=== PATIENT | male | born 1955 | race Two or more races ===

== ENCOUNTER 2016-05-25 00:49 | Day surgery (SDC) | payer OTHER ==
[~2016-05-25] VITALS: Ht 180.3 cm; Wt 90.0 kg
[2016-05-25] VITALS (18 sets, daily range): BP systolic 131–170; BP diastolic 51–84; PULSE 53–73; RESP 14–23; O2SAT 100
[~2016-05-25 00:49] MED LIST: AMLO5TAB2 PO; ASPI-973 PO; ATEN50TA PO
[2016-05-25] MEDS ORDERED: fentaNYL PF 50 mCg/mL 5 mL Inj IVPUSH PRN (06:00)
[2016-05-25] MEDS ORDERED: Flumazenil 0.1 mg/mL 5 mL Inj IV ONE (08:57)
[2016-05-25] MEDS: fentaNYL-PF 50 mCg/mL 2 mL Inj IVPUSH PRN ×2 (09:05→09:10)
[2016-05-25] MEDS ORDERED: Heparin 1,000 Units/500 mL NS Premix IV ONE (09:22)
[2016-05-25] MEDS ORDERED: Nitroglycerin 50,000 mcg/250 mL D5W Premix IV ONE (09:22)
[2016-05-25] MEDS ORDERED: Heparin 1,000 Unit/mL 10 mL Inj ONE (09:23)
[2016-05-25] MEDS ORDERED: Heparin 5,000 Units/500 mL NS Premix IV ONE (09:23)
[2016-05-25] MEDS ORDERED: 0.9% Sodium Chloride 50 ML ONE (09:28)
--- NOTE | 2016-05-25 09:31 | NUR ---
pt arousable and awaiting hearth cath. reports "i didn't feel a thing, no pain".
[2016-05-25] MEDS ORDERED: fentaNYL-PF 50 mCg/mL 2 mL Inj ONE (09:46)
[2016-05-25] MEDS ORDERED: 0.9% Sodium Chloride 250 ML IV PRN (11:03)
[2016-05-25] MEDS ORDERED: 0.9% Sodium Chloride 1,000 ML IV PRN (11:03)
[2016-05-25] MEDS ORDERED: Ondansetron 2 mg/mL 2 mL Inj IVPUSH PRN (11:05)
[2016-05-25] MEDS ORDERED: Atropine 1 mg/10 mL (Code) Syringe IVPUSH PRN (11:05)
[2016-05-25] MEDS ORDERED: HYDROcodone-APAP 5-325 mg Tablet PO PRN (11:05)
--- NOTE | 2016-05-25 12:38 | DRSVH ---
[facility] [address] [place] [address] Echocardiogram Report Name: JANICE LUND Study Date: 05/25/2016 Height: 71 in Hospital Exam Location: [facility] Weight: 199 lb Gender: Male BSA: 2.1 m2 : 1955 Age: 60 yrs BP: 154/71 mmHg Reason For Study: Mitral Valve- Regurgitation Performed By: Ulysses Gutierrez Referring Physician: REAL SANCHEZ Interpretation Summary PATRICIO to assess for mitral valve prolapse. 1. Normal LV size and function. 2. Moderate left atrial enlargement. Intact interatrial septum. Left atrial appendage is free of any thrombus. 3. Severe posterior mitral valve prolapse. Leaflet is flail and not coaptating. Moderate to severe mitral regurgitation. Coanda effect with regurgitant jet along the floor of anterior mitral leafelt and inter-atrial septum. 4. Mild tricuspid regurgitation. Other valve structures are unremarkable. 5. Mild atherosclerosis of the arotic arch. 6. No prior study is available for comparison. Procedure: Informed consent for Transesophageal Echocardiogram, and use of a contrast agent as needed, was obtained prior to the procedure. The patient was brought to the [facility] in a fasting state. An intravenous line was placed. A topical anesthetic agent was used for oropharangeal anesthesia. A bite block was inserted. IV concious sedation was administered using versed and fentanyl. The transesophageal probe was passed without difficulty. A 2D transesophageal echocardiogram with spectral and color flow Doppler was performed. The patient was in normal sinus rhythm during the exam. There were no complications. Left Ventricle: The left ventricle is normal in size, wall thickness, and systolic function without any focal wall motion abnormalities. Right Ventricle: The right ventricle grossly appears normal in size with probable normal systolic function. Atria: The left atrium is moderately dilated. Injection of contrast documented no interatrial shunt. Mitral Valve: Flail or severe prolapse of the mitral posterior leaflet. There is moderate to severe mitral regurgitation. The mitral regurgitant jet is anteriorly directed, which is consistent with posterior leaflet pathology. Aortic Valve: The aortic valve is normal in structure and function. No aortic regurgitation is present. Tricuspid Valve: The tricuspid valve is not well visualized, but is grossly normal. There is mild tricuspid regurgitation. Pulmonic Valve: The pulmonic valve leaflets are thin and pliable; valve motion is normal. Great Vessels: There is mild atherosclerotic plaque in the aortic arch. Pericardium/ Pleura: There is no pericardial effusion. Electronically signed by: Dr. Real Sanchez on Reading Physician:05/25/2016 12:38 PM
[2016-05-25] MEDS ORDERED: LIP40 PO (13:35)
[2016-05-25] MEDS ORDERED: NITR0.4T6 SL (13:35)
--- NOTE | 2016-05-25 15:40 | NUR ---
pt is up oob, isabel activity well. denies pain. groin remains soft, non-tender.
--- NOTE | 2016-05-25 16:06 | NUR ---
pt discharged with paper prescriptions in hand, and son at bedside. all questions answered, pt and family agrees to understanding and follow d/c instructions. see hard copy d/c instructions. activity restrictions discussed. pt left with cardiac catheterization and sedation paperwork. prescriptions were called in to [facility] by me personally with detailed script instructions including dr. mccauley's cell phone number in caase of questions. pt was instructed to continue atenolol until metoprolol succinate script is filled.
[2016-05-25] MEDS ORDERED: METO25TA99 PO (16:14)
--- NOTE | 2016-05-25 16:57 | CS94 ---
[place] [address] DIAGNOSTIC CARDIAC CATHETERIZATION PATIENT: JANICE LUND : 1955 MR#: [id number] ADMIT: 05/25/2016 JOB ID: [id number] SERVICE DATE: 05/25/2016 INDICATION: History of angina with abnormal stress test. Moderate to severe mitral regurgitation. CONSENT: The patient was explained the risks, benefits, and alternatives of the procedure. Informed signed consent was obtained and placed in the chart. PROCEDURE: The patient was brought to the cath laboratory and placed on the cath table. Both groins were prepped and draped in usual sterile manner. The IV fluids were administered prior to the procedure. Using a standard Seldinger technique, a 6-[place] arterial sheath and a 7-[place] venous sheath were placed in the femoral artery as well as femoral vein without any difficulty. A [place]-Mendel catheter was advanced into the venous sheath and the balloon tip was inflated after visualizing the tip. The catheter was further advanced into the right atrium, right ventricle, and into the right pulmonary artery area. Subsequently pulmonary artery occlusive pressures were obtained. Oxygen saturation was obtained as well. Pulmonary artery pressures were obtained after deflating the balloon. Cardiac output was obtained by thermodilution method. Oxygen saturation was obtained in the pulmonary artery. In a sequential manner, right ventricular and right atrial pressures as well as oxygen saturations were obtained. The [place]-Mendel catheter was withdrawn. The FR4 catheter was advanced over the guidewire and placed in the left main coronary artery, and multiple views of left coronary artery were obtained in multiple projections. FR4 catheter was subsequently used to engage the right coronary artery. Multiple views of the right coronary artery were obtained in multiple projections. A pigtail catheter was advanced over the guidewire and placed in the left ventricle. Left ventricular hemodynamics were obtained. Subsequently, in the right anterior oblique view, left ventricular cineangiography was performed. Fluoro time was 7 minutes. Total contrast used was 90 cc. Complications: None. FINDINGS: Hemodynamics. The pulmonary capillary wedge pressure was 13/16 with a mean of 11 mmHg. PA pressure was 36/11 with a mean of 21 mmHg. The transpulmonary gradient was 10 mmHg. The RV pressure was 39/3 with an RVEDP of 8 mmHg and RA pressure was 10/6 with a mean of 4 mmHg. Oxygen saturation: Pulmonary wedge oxygen saturation was 97%. PA pressure was 76%, RV 76%, RA 69% and FA was 99%. The cardiac output by thermodilution method was 6.8 with an index of 3.24 L/minute. The cardiac output by [place] method was 5.02, with a cardiac index of 2.39 L/minute per meter squared. Left ventricular hemodynamics: The left ventricular end-diastolic pressure was 18-22 mmHg. There was no left ventricular to aortic gradient. CORONARY ANGIOGRAPHY: The left main coronary artery has mild diffuse disease with tapering in the distal end. It bifurcates into left anterior descending artery and left circumflex coronary artery. The proximal LAD has a diffuse tubular stenosis of 60% to 70% severity. It gives off a 1st moderate size diagonal branch one and two, and three arising from the mid LAD. The mid LAD and distal LAD does not demonstrate any significant disease. Septal perforators are noted arising from the LAD. The left circumflex coronary artery has 70% to 80% tapering stenosis. It gives us an obtuse marginal branch. Following the obtuse marginal branch, it has and high-grade eccentric stenosis of 80% to 90%. The distal circumflex bifurcates and does not demonstrate any significant disease. Left to right collaterals are visualized. The right coronary artery has an eccentric mid RCA 80% to 90% stenosis. It is followed by an acute marginal branch which is subtotally occluded. The posterolateral branch and PDA branch do not demonstrate any significant disease. The left ventricular cineangiography demonstrates overall normal LV systolic function, 2 to 3+ mitral regurgitation. IMPRESSION: 1. Three-vessel coronary artery disease. 2. Moderate to severe mitral regurgitation. 3. No evidence of intracardiac shunt. 4. Normal cardiac output. CC: [facility], [address] [place] [address], [id number]. CESARD
== END 2016-05-25 23:59 | disposition home or self-care (01) ==
LOC: SOUO 00:49
PROVIDERS: ATTEND Internal Medicine Cardiovascular Disease
DX: I34.1 Nonrheumatic mitral (valve) prolapse (principal); I25.119 Atherosclerotic heart disease of native coronary artery with unspecified angina pectoris; I34.0 Nonrheumatic mitral (valve) insufficiency; I10 Essential (primary) hypertension; Z79.82 Long term (current) use of aspirin
CPT/HCPCS: 93460; C1769; C8925; J1644; J2250; J3010; Q9967